=== PATIENT | female | born 1990 | race American Indian/Alaskan Native ===

== ENCOUNTER 2017-05-10 12:14 | Outpatient (CLI) | payer OTHER, MEDICAID ==
[2017-05-10] MEDS ORDERED: LACTATED RINGERS 500 ML IV ONE (12:17)
[2017-05-10 12:29] VITALS: BP 128/73
--- NOTE | 2017-05-10 14:43 | Ultrasound Report ---
ULTRASOUND OB LIMITED History: Rupture of membranes Technique: Transabdominal ultrasound with Doppler interrogation. Gestation: Single Position: Cephalic Amniotic Fluid: Normal NANCY = 7.0 cm Heart Rate: 166 BPM
== END 2017-05-10 15:20 | disposition home or self-care (01) ==
LOC: TRG 12:14
PROVIDERS: ATTEND Obstetrics & Gynecology
DX: O42.92 Full-term premature rupture of membranes, unspecified as to length of time between rupture and onset of labor (principal); O47.03 False labor before 37 completed weeks of gestation, third trimester; Z3A.36 36 weeks gestation of pregnancy
CPT/HCPCS: 59025; 76815

== ENCOUNTER 2017-05-15 16:46 | Outpatient (CLI) | payer OTHER, MEDICAID ==
[2017-05-15 17:06] VITALS: BP 123/75
[2017-05-15] MEDS ORDERED: LACTATED RINGERS 500 ML IV ONE ×2 (17:43→18:24)
[2017-05-15 19:54] LABS: Bacteria,Urine 3+ /HPF (Negative); Bilirubin,Urine NEG (Negative); Blood,Urine NEG (Negative); Ketones,Urine TR mg/dL (Negative); Leukocyte Esterase,Urine LG (Negative); Mucus,Urine 3+ /HPF; Nitrite,Urine NEG (Negative)
[2017-05-15] MEDS ORDERED: XYLOCAINE 1% MPF 5 mL INFILTRATI ONE (20:02)
[2017-05-15] MEDS ORDERED: ROCEPHIN IV ONE (20:02)
[2017-05-15] MEDS ORDERED: ROCEPHIN IM ONE (20:45)
[2017-05-15] MEDS ORDERED: NACL 0.9% 1000 ML 1,000 ML ONE (20:46)
[2017-05-15] MEDS ORDERED: ROCEPHIN/NS 1 GM/50 ML 1 GM/50 ML BAG IV SCH (21:00)
== END 2017-05-15 21:25 | disposition home or self-care (01) ==
LOC: TRG 16:46
PROVIDERS: ATTEND Obstetrics & Gynecology
DX: O47.03 False labor before 37 completed weeks of gestation, third trimester (principal); Z3A.36 36 weeks gestation of pregnancy
CPT/HCPCS: 59025; 81001; 87086; 96360; 96361; 96365; J0696; J7030; J7120

== ENCOUNTER 2017-05-17 00:40 | Inpatient (IN) | payer OTHER, MEDICAID ==
[2017-05-17] MEDS ORDERED: BRETHINE IVP PRN (02:29)
[2017-05-17] MEDS ORDERED: XYLOCAINE 2% INFILTRATI ONE (02:29)
[2017-05-17] MEDS ORDERED: MINERAL OIL PO PRN (02:29)
[2017-05-17] MEDS ORDERED: SUBLIMAZE IV PRN (02:29)
[2017-05-17] MEDS ORDERED: BRETHINE SUB-Q PRN (02:29)
[2017-05-17] MEDS ORDERED: ePHEDrine SULFATE IV PRN ×2 (02:29→08:00)
[2017-05-17] MEDS ORDERED: PITOCin/NS 30 UNIT/500ML 30 UNITS/500 ML BAG IV SCH ×2 (03:00→09:00)
[2017-05-17] MEDS ORDERED: PITOCin/NS 20 UNIT/1000ML DRIP 20 UNITS/1,000 ML BAG IV SCH (03:00)
[2017-05-17] MEDS: LACTATED RINGERS 1,000 ML IV SCH ×3 (03:28→10:32)
[2017-05-17 03:58] LABS: Hematocrit 28.8 % (30.3-42.9); Hemoglobin 9.7 gm/dl (10.1-14.3); Mean Corpuscular HGB Conc 34 % (30-34); Mean Corpuscular Hemoglobin 29 pg (28-32); Mean Corpuscular Volume 87 fl (79-97); Platelet Count 265 K/mm3 (140-440); Red Cell Distribution Width 14.5 % (13.2-15.2); White Blood Count 9.4 K/mm3 (4.5-11.0)
[2017-05-17] MEDS: ZOFRAN IV PRN ×2 (04:45→08:46)
[2017-05-17] MEDS ORDERED: STADOL IV PRN (05:00)
--- NOTE | 2017-05-17 06:49 | History and Physical Report ---
History of Present Illness Date of admission: 05/17/17 02:37 History of present illness: EDC Confirmation: 06/07/2017 Gestational Age: 26 1/7 weeks Past History : 2 Term Births: 0 Premature Births: 0 Living Children: 0 Para: 0 Mult. Births: 0 Prev : 0 Prev. attempt? 0 Aborta: 1 Elect. Ab: 0 Spont. Ab: 1 Ectopics: 0 # 1 Delivery date: 12/10 Weeks Gestation: 9 Delivery type: SAB Comments: D&C done Past Medical History: Rheumatoid Arthritis (11/09) Migraines Hiatal hernia Past Surgical History: Cholecystectomy with Neal plication (09/2014) D&C: (2015) Family History Summary: Other family member - Has No Family History of Ovarvian Cancer - Entered On: 03/02 Other family member - Has No Family History of Colon Cancer - Entered On: 2016 Other family member - Has No Family History of Breast Cancer - Entered On: 2016 Other family member - Has Family History of Hypertension - Entered On: 03/02/2017 Other family member - Has Family History of Diabetes - Entered On: 03/02/2017 Other family member - Has Family History of CVA or Stroke - Entered On: 03/02/2017 Other family member - Has Family History of Coronary Heart Disease - Entered On : 03/02/2017 Social History: Patient is Risk Factors: Smoked Tobacco Use: Never smoker Drug use: no Alcohol use: yes Drinks per day: social Past Medical History 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 of genital herpes: no Genetic History Congenital Heart Defect: Mom: no Dad: no Caleb Disease: Mom: no Dad: no Thalassemia Mom: no Dad: no Neural Tube Defect Mom: no Dad: no Down's Syndrome Mom: no Dad: no Saeed-Sachs Mom: no Dad: no Sickle Cell Disease/Trait Mom: no Dad: no Hemophilia Mom: no Dad: no Muscular Dystrophy Mom: no Dad: no Cystic Fibrosis Mom: no Dad: no [place] Chorea Mom: no Dad: no Mental Retardation Mom: no Dad: no Fragile X Mom: no Dad: no Other Genetic/Chromosomal Disorder Mom: no Dad: no Child w/other defect Mom: no Dad: no Active Medications (reviewed today): PREDNISONE 10 MG ORAL TABS (PREDNISONE) [id number] [id number] MG ORAL CAPS ([id number]-COD) Current Allergies (reviewed today): No known allergies Laboratory Results Date/Time Collected: 03/02/2017 Urine HCG: positive Review of Systems General Complains of fatigue. Denies fever, chills, sweats, anorexia, weakness, malaise, weight loss and sleep disorder. Complains of pelvic pain. Denies vaginal discharge, incontinence, dysuria, hematuria, urinary frequency, amenorrhea, menorrhagia, abnormal vaginal bleeding, genital sores, decreased libido, painful periods, painful sex, urinary urgency, hot flashes, vaginal dryness, vaginal itching and vaginal odor. CV Denies chest pains, palpitations, syncope, dyspnea on exertion, orthopnea, PND and peripheral edema. Resp Denies cough, dyspnea at rest, excessive sputum, hemoptysis, wheezing and pleurisy. GI Denies nausea, vomiting, diarrhea, constipation, change in bowel habits, abdominal pain, melena, hematochezia, jaundice, gas/bloating, indigestion/ heartburn, dysphagia and odynophagia. Breast Complains of breast pain. Denies left breast lump, right breast lump, nipple discharge, bloody discharge from nipple, abnormal mammogram and breast enlargement. MS Complains of back pain. Psych Complains of anxiety. Denies depression, irritability and mood swings. PHYSICAL EXAM HEENT: normocephalic, no lesions or deformities Neck/Thyroid: supple, thyroid normal Skin no significant abnormal lesions or rashes .Tatoo(s) are present Chest: respiratory effort normal, clear to auscultation .Tatoo(s) are present Breasts: skin/areolae normal, no masses, no nipple discharge, no erythema/warmth /tenderness, and axillae normal. CV: regular, normal S1-S2, no murmur, no rub, no gallop Abdomen: normal bowel sounds, soft, nontender, no HSM Healed laparoscopy scars Musculoskeletal: grossly normal ROM in joints, no joint tenderness or muscle weakness Neuro: no gross anomalities Extremities: no clubbing, cyanosis, or edema .Tatoo(s) are present VP GLOBAL Exams Vulva/Vagina: No lesions, normal BUS, normal rugae Cervix: No lesions; no cervical motion tenderness Uterus: enlarged uterus 24-26 weeks in size Adnexae: Unable to palpate due to uterine size Rectovaginal: exam defered Flowsheet View for Follow-up Visit Estimated weeks of gestation: 26 1/7 Weight: 133 Blood pressure: 100 / 60 Current OB Labs Blood Type: A (10/20/2016) Rh Type: positive (10/20/2016) Rh Antibody Screen: negative (10/20/2016) Hgb: 12.7 (10/20/2016) Hct: 38.1 (10/20/2016) Platelets: 315 (10/20/2016) Rubella: immune (10/20/2016) RPR: nonreactive (10/20/2016) Infant's Physician: undecided Past History - Obstetrical History Expected Date of Delivery: 06/07/17 Actual Gestation: 37 Week(s) 0 Day(s) : 2 Para: 0 Spontaneous Abortions: 1 Number of Living Children: 0 Medications and Allergies Allergies Allergy/AdvReac Type Severity Reaction Status Date / Time latex AdvReac Itching Verified 05/17/17 03:54 Home Medications Medication Instructions Recorded Confirmed Last Taken Type predniSONE [Deltasone] 10 mg PO QDAY 05/17/17 05/17/17 05/16/17 History Active Meds: Active Medications Butorphanol Tartrate (Stadol) 2 mg IV Q2H PRN PRN Reason: Labor Pain Last Admin: 05/17/17 05:30 Dose: 2 mg Fentanyl (Sublimaze) 100 mcg IV Q2H PRN PRN Reason: Labor Pain Last Admin: 05/17/17 03:28 Dose: 100 mcg Lactated Ringer's (Lactated Ringers) 1,000 mls @ 125 mls/hr IV DIRECT GINA Last Admin: 05/17/17 03:28 Dose: 125 mls/hr Oxytocin/Sodium Chloride (Pitocin/Ns 20 Unit/1000ml Drip) 20 units in 1,000 mls @ 125 mls/hr IV DIRECT GINA Oxytocin/Sodium Chloride (Pitocin/Ns 30 Unit/500ml) 30 units in 500 mls @ 2 mls /hr IV TITR GINA PRN Reason: Protocol Last Titration: 05/17/17 06:29 Dose: 2 mls/hr, 2 mls/hr Mineral Oil (Mineral Oil) 30 ml PO QHS PRN PRN Reason: Constipation Ondansetron HCl (Zofran) 4 mg IV Q8H PRN PRN Reason: Nausea And Vomiting Last Admin: 05/17/17 04:45 Dose: 4 mg - Vital Signs Vital signs: Vital Signs Pulse Pulse Ox 250 H 82 L 05/17/17 00:56 05/17/17 00:56 Temp Pulse Resp BP Pulse Ox 97.5 F L 73 22 137/85 100 05/17/17 05:33 05/17/17 06:14 05/17/17 05:33 05/17/17 05:30 05/17/17 06:14 - Physical Exam Breasts: Positive: deferred Cardiovascular: Regular rate, Normal S1, Normal S2 Lungs: Positive: Normal air movement Abdomen: Positive: normal appearance, soft, normal bowel sounds. Negative: distention, tenderness Genitourinary (Female): Positive: normal external genitalia Vulva: both: normal Vagina: Positive: normal moisture. Negative: discharge Cervix: Negative: lesion, discharge Uterus: Positive: normal size, normal contour Adnexa: both: normal Anus/Rectum: Positive: normal perianal skin, heme negative. Negative: rectal mass, hemorrhoids Extremities: Positive: normal Deep Tendon Reflex Grade: Normal +2 - Obstetrical FHR: category 1 Uterine Contraction Monitor Mode: External Cervical Dilatation: 3 Cervical Effacement Percentage: 70 station: -1 Uterine Contraction Pattern: Irregular Uterine Tone Measurement Phase: Resting Uterine Contraction Intensity: Moderate Results Result Diagrams: 05/17/17 03:20 Abnormal lab results 05/17/17 Range/Units 03:20 RBC 3.30 L (3.65-5.03) M/mm3 Hgb 9.7 L (10.1-14.3) gm/dl Hct 28.8 L (30.3-42.9) % All other labs normal. Laboratory Data-Patient Name: LOUIE GARCIA Test Date Result Blood Type 10/20/2016 A Rh 10/20/2016 positive Antibody Screen 10/20/2016 Negative Rubella 10/20/2016 Immune Serology (RPR) 05/06/2017 Nonreactive HBsAg 03/08/2017 negative Hemoglobin 10/20/2016 12.7 Hematocrit 10/20/2016 38.1 Platelets 10/20/2016 315 Chlamydia DNA 03/02/2017 Negative GC DNA/Culture 03/02/2017 Urine Culture 05/06/2017 Final report Group B Strep cult 05/03/2017 Negative PAP HIV 05/06/2017 Negative AFP/Quad Screen Glucola Test 3hr GTT (Fasting) 05/06/2017 76 1 hr 05/06/2017 77 2 hr 05/06/2017 81 3 hr 05/06/2017 65 Assessment and Plan 26yo @ 37 weeks with ROM NANCY 5 GBS negative Orders in EMR. - Patient Problems (1) Spontaneous rupture of membranes Onset Date: ~05/17/17 Current Visit: Yes Status: Acute Plan to address problem: EFM continuous Pitocin per protocol (2) 37 or more weeks gestation of Onset Date: ~05/17/17 Current Visit: Yes Status: Acute Plan to address problem: SROM Augmentation of labor with pitocin per protcol (3) Arthritis, rheumatoid Current Visit: Yes Status: Acute Qualifiers: Rheumatoid arthritis location: unspecified site Rheumatoid factor presence : unspecified presence Laterality: L Qualified Code(s): M06.9 - Rheumatoid arthritis, unspecified Plan to address problem: Pt states she has RA and has been on Prednisone 100mg po QD. Pt states she is to be on stress dose steroids. Will consult with for mgt.
[2017-05-17] MEDS ORDERED: ePHEDrine SULFATE ONE (07:09)
--- NOTE | 2017-05-17 07:44 | Anesthesia Consultation ---
Anesthesia Consult and Med Hx Date of service: 05/17/17 - Airway Anesthetic Teeth Evaluation: Good ROM Head & Neck: Adequate Mental/Hyoid Distance: Adequate Mallampati Class: Class II Intubation Access Assessment: Probably Good - Pulmonary Exam CTA: Yes - Cardiac Exam Cardiac Exam: RRR - Pre-Operative Health Status ASA Pre-Surgery Classification: ASA2 Proposed Anesthetic Plan: General - Pulmonary Hx Asthma: No COPD: No Hx Pneumonia: No - Cardiovascular System Hx Hypertension: No - Central Nervous System Hx Seizures: No Hx Psychiatric Problems: No - Endocrine Hx Renal Disease: No Hx End Stage Renal Disease: No Hx Hypothyroidism: No Hx Hyperthyroidism: No - Hematic Hx Anemia: No Hx Sickle Cell Disease: No - Other Systems Hx Alcohol Use: No
[2017-05-17] MEDS: fentaNYL-BUPIV 2 MCG/ML-0.125% 200 MCG/100 ML BAG EPIDURAL SCH ×2 (07:50→11:30)
--- NOTE | 2017-05-17 07:56 | Progress Note ---
Assessment and Plan Epidural complete Landa placed SVE 3-4,80,0 Pit remains @ 2mu Re-eval as needed. Spoke with will start Hydrocortisone 100mg po q8hr as the stress dose steroids. Will resume pitocin per order increase 4mu Q30min Re-eval as needed - Patient Problems (1) Spontaneous rupture of membranes Onset Date: ~05/17/17 Current Visit: Yes Status: Acute (2) 37 or more weeks gestation of Onset Date: ~05/17/17 Current Visit: Yes Status: Acute (3) Arthritis, rheumatoid Current Visit: Yes Status: Acute Qualifiers: Rheumatoid arthritis location: unspecified site Rheumatoid factor presence : unspecified presence Laterality: L Qualified Code(s): M06.9 - Rheumatoid arthritis, unspecified Subjective - Subjective Date of service: 05/17/17 (comfortable with epidural) Interval history: EDC Confirmation: 06/07/2017 Gestational Age: 26 1/7 weeks Past History : 2 Term Births: 0 Premature Births: 0 Living Children: 0 Para: 0 Mult. Births: 0 Prev : 0 Prev. attempt? 0 Aborta: 1 Elect. Ab: 0 Spont. Ab: 1 Ectopics: 0 # 1 Delivery date: 12/10 Weeks Gestation: 9 Delivery type: SAB Comments: D&C done Past Medical History: Rheumatoid Arthritis (11/09) Migraines Hiatal hernia Past Surgical History: Cholecystectomy with Neal plication (09/2014) D&C: (2015) Family History Summary: Other family member - Has No Family History of Ovarvian Cancer - Entered On: 03/02 Other family member - Has No Family History of Colon Cancer - Entered On: 2016 Other family member - Has No Family History of Breast Cancer - Entered On: 2016 Other family member - Has Family History of Hypertension - Entered On: 03/02/2017 Other family member - Has Family History of Diabetes - Entered On: 03/02/2017 Other family member - Has Family History of CVA or Stroke - Entered On: 03/02/2017 Other family member - Has Family History of Coronary Heart Disease - Entered On : 03/02/2017 Social History: Patient is Risk Factors: Smoked Tobacco Use: Never smoker Drug use: no Alcohol use: yes Drinks per day: social Past Medical History 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 of genital herpes: no Genetic History Congenital Heart Defect: Mom: no Dad: no Caleb Disease: Mom: no Dad: no Thalassemia Mom: no Dad: no Neural Tube Defect Mom: no Dad: no Down's Syndrome Mom: no Dad: no Saeed-Sachs Mom: no Dad: no Sickle Cell Disease/Trait Mom: no Dad: no Hemophilia Mom: no Dad: no Muscular Dystrophy Mom: no Dad: no Cystic Fibrosis Mom: no Dad: no [place] Chorea Mom: no Dad: no Mental Retardation Mom: no Dad: no Fragile X Mom: no Dad: no Other Genetic/Chromosomal Disorder Mom: no Dad: no Child w/other defect Mom: no Dad: no Active Medications (reviewed today): PREDNISONE 10 MG ORAL TABS (PREDNISONE) [id number] [id number] MG ORAL CAPS ([id number]-COD) Current Allergies (reviewed today): No known allergies Laboratory Results Date/Time Collected: 03/02/2017 Urine HCG: positive Review of Systems General Complains of fatigue. Denies fever, chills, sweats, anorexia, weakness, malaise, weight loss and sleep disorder. Complains of pelvic pain. Denies vaginal discharge, incontinence, dysuria, hematuria, urinary frequency, amenorrhea, menorrhagia, abnormal vaginal bleeding, genital sores, decreased libido, painful periods, painful sex, urinary urgency, hot flashes, vaginal dryness, vaginal itching and vaginal odor. CV Denies chest pains, palpitations, syncope, dyspnea on exertion, orthopnea, PND and peripheral edema. Resp Denies cough, dyspnea at rest, excessive sputum, hemoptysis, wheezing and pleurisy. GI Denies nausea, vomiting, diarrhea, constipation, change in bowel habits, abdominal pain, melena, hematochezia, jaundice, gas/bloating, indigestion/ heartburn, dysphagia and odynophagia. Breast Complains of breast pain. Denies left breast lump, right breast lump, nipple discharge, bloody discharge from nipple, abnormal mammogram and breast enlargement. MS Complains of back pain. Psych Complains of anxiety. Denies depression, irritability and mood swings. PHYSICAL EXAM HEENT: normocephalic, no lesions or deformities Neck/Thyroid: supple, thyroid normal Skin no significant abnormal lesions or rashes .Tatoo(s) are present Chest: respiratory effort normal, clear to auscultation .Tatoo(s) are present Breasts: skin/areolae normal, no masses, no nipple discharge, no erythema/warmth /tenderness, and axillae normal. 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 Vulva/Vagina: No lesions, normal BUS, normal rugae Cervix: No lesions; no cervical motion tenderness Uterus: enlarged uterus 24-26 weeks in size Adnexae: Unable to palpate due to uterine size Rectovaginal: exam defered Flowsheet View for Follow-up Visit Estimated weeks of gestation: 26 10/31 Weight: 133 Blood pressure: 100 / 60 Current OB Labs Blood Type: A (10/20/2016) Rh Type: positive (10/20/2016) Rh Antibody Screen: negative (10/20/2016) Hgb: 12.7 (10/20/2016) Hct: 38.1 (10/20/2016) Platelets: 315 (10/20/2016) Rubella: immune (10/20/2016) RPR: nonreactive (10/20/2016) 's Physician: undecided Patient reports: movement normal Objective - Vital Signs Vital Signs: Vital Signs - 12hr 05/17/17 05/17/17 05/17/17 00:56 01:03 02:49 Temperature 98.4 F Pulse Rate 250 H 94 H 81 Respiratory 18 Rate Blood Pressure 135/72 120/71 O2 Sat by Pulse 82 L 98 Oximetry 05/17/17 05/17/17 05/17/17 02:51 02:54 02:59 Temperature 98.3 F Pulse Rate 81 89 Respiratory 20 Rate Blood Pressure O2 Sat by Pulse 98 98 Oximetry 05/17/17 05/17/1717 03:28 05:30 05:31 Temperature Pulse Rate 86 96 H Respiratory 20 22 Rate Blood Pressure 137/85 O2 Sat by Pulse 91 Oximetry 05/17/17 05/17/17 05/17/17 05:33 06:14 07:14 Temperature 97.5 F L Pulse Rate 73 74 Respiratory 22 Rate Blood Pressure 138/78 O2 Sat by Pulse 100 Oximetry 05/17/17 05/17/17 05/17/17 07:15 07:18 07:20 Temperature Pulse Rate 85 82 88 Respiratory Rate Blood Pressure O2 Sat by Pulse 96 94 98 Oximetry 05/17/17 05/17/17 05/17/17 07:26 07:28 07:29 Temperature Pulse Rate 92 H 88 110 H Respiratory Rate Blood Pressure 141/62 137/72 138/87 O2 Sat by Pulse 98 Oximetry 05/17/17 05/17/17 05/17/17 07:31 07:32 07:34 Temperature Pulse Rate 89 79 85 Respiratory Rate Blood Pressure 137/81 138/77 O2 Sat by Pulse 99 Oximetry 05/17/17 05/17/17 05/17/17 07:35 07:36 07:37 Temperature Pulse Rate 72 76 85 Respiratory Rate Blood Pressure 142/80 140/69 O2 Sat by Pulse 99 Oximetry 05/17/17 05/17/17 05/17/17 07:39 07:41 07:42 Temperature Pulse Rate 81 84 97 H Respiratory Rate Blood Pressure 130/73 141/80 O2 Sat by Pulse 98 Oximetry 05/17/17 07:44 Temperature Pulse Rate 94 H Respiratory Rate Blood Pressure 126/69 O2 Sat by Pulse Oximetry - Exam Breasts: deferred Cardiovascular: Regular rate Lungs: Normal air movement Abdomen: Present: normal appearance, soft. Absent: distention, tenderness Uterus: Present: normal FHR: auscultation normal, category 1 Uterine Contraction Monitor Mode: External Cervical Dilatation: 3 Cervical Effacement Percentage: 80 station: 0 Uterine Contraction Pattern: Regular Uterine Tone Measurement Phase: Resting Uterine Contraction Intensity: Moderate Extremities: normal Deep Tendon Reflex Grade: Normal +2 - Labs Labs: Abnormal Labs 05/17/17 03:20 RBC 3.30 L Hgb 9.7 L Hct 28.8 L Laboratory Results - last 24 hr 05/17/17 05/17/17 03:20 03:20 WBC 9.4 RBC 3.30 L Hgb 9.7 L Hct 28.8 L MCV 87 MCH 29 MCHC 34 RDW 14.5 Plt Count 265 Blood Type A POSITIVE Antibody Screen TNR JENNY Antibody Screen Negative
[2017-05-17] MEDS ORDERED: NARCAN 2 MG/2 ML IV PRN (08:00)
[2017-05-17] MEDS ORDERED: CORTEF PO SCH (09:00)
--- NOTE | 2017-05-17 09:01 | Ultrasound Report ---
OB LIMITED INDICATION: Questionable spontaneous rupture of membranes. COMPARISON: 05/10/2017 TECHNIQUE: Transabdominal grayscale ultrasound with Doppler interrogation. Gestation: [place] Position: Cephalic Amniotic Fluid: Decreased (< 7 cm) NANCY = 5.5 cm Placenta: Fundal Placental Grade: II Heart Rate: 146 BPM
--- NOTE | 2017-05-17 10:58 | Progress Note ---
Assessment and Plan Anticipate vaginal delivery - Patient Problems (1) Spontaneous rupture of membranes Onset Date: ~05/17/17 Current Visit: Yes Status: Acute (2) 37 or more weeks gestation of Onset Date: ~05/17/17 Current Visit: Yes Status: Acute (3) Arthritis, rheumatoid Current Visit: Yes Status: Acute Qualifiers: Rheumatoid arthritis location: unspecified site Rheumatoid factor presence : unspecified presence Laterality: L Qualified Code(s): M06.9 - Rheumatoid arthritis, unspecified Subjective - Subjective Date of service: 05/17/17 (comfortable with epidural) Interval history: EDC Confirmation: 06/07/2017 Gestational Age: 26 1/7 weeks Past History : 2 Term Births: 0 Premature Births: 0 Living Children: 0 Para: 0 Mult. Births: 0 Prev : 0 Prev. attempt? 0 Aborta: 1 Elect. Ab: 0 Spont. Ab: 1 Ectopics: 0 # 1 Delivery date: 12/10 Weeks Gestation: 9 Delivery type: SAB Comments: D&C done Past Medical History: Rheumatoid Arthritis (11/09) Migraines Hiatal hernia Past Surgical History: Cholecystectomy with Neal plication (09/2014) D&C: (2015) Family History Summary: Other family member - Has No Family History of Ovarvian Cancer - Entered On: 03/02 Other family member - Has No Family History of Colon Cancer - Entered On: 2016 Other family member - Has No Family History of Breast Cancer - Entered On: 2016 Other family member - Has Family History of Hypertension - Entered On: 03/02/2017 Other family member - Has Family History of Diabetes - Entered On: 03/02/2017 Other family member - Has Family History of CVA or Stroke - Entered On: 03/02/2017 Other family member - Has Family History of Coronary Heart Disease - Entered On : 03/02/2017 Social History: Patient is Risk Factors: Smoked Tobacco Use: Never smoker Drug use: no Alcohol use: yes Drinks per day: social Past Medical History 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 of genital herpes: no Genetic History Congenital Heart Defect: Mom: no Dad: no Caleb Disease: Mom: no Dad: no Thalassemia Mom: no Dad: no Neural Tube Defect Mom: no Dad: no Down's Syndrome Mom: no Dad: no Saeed-Sachs Mom: no Dad: no Sickle Cell Disease/Trait Mom: no Dad: no Hemophilia Mom: no Dad: no Muscular Dystrophy Mom: no Dad: no Cystic Fibrosis Mom: no Dad: no [place] Chorea Mom: no Dad: no Mental Retardation Mom: no Dad: no Fragile X Mom: no Dad: no Other Genetic/Chromosomal Disorder Mom: no Dad: no Child w/other defect Mom: no Dad: no Active Medications (reviewed today): PREDNISONE 10 MG ORAL TABS (PREDNISONE) [id number] [id number] MG ORAL CAPS ([id number]-COD) Current Allergies (reviewed today): No known allergies Laboratory Results Date/Time Collected: 03/02/2017 Urine HCG: positive Review of Systems General Complains of fatigue. Denies fever, chills, sweats, anorexia, weakness, malaise, weight loss and sleep disorder. Complains of pelvic pain. Denies vaginal discharge, incontinence, dysuria, hematuria, urinary frequency, amenorrhea, menorrhagia, abnormal vaginal bleeding, genital sores, decreased libido, painful periods, painful sex, urinary urgency, hot flashes, vaginal dryness, vaginal itching and vaginal odor. CV Denies chest pains, palpitations, syncope, dyspnea on exertion, orthopnea, PND and peripheral edema. Resp Denies cough, dyspnea at rest, excessive sputum, hemoptysis, wheezing and pleurisy. GI Denies nausea, vomiting, diarrhea, constipation, change in bowel habits, abdominal pain, melena, hematochezia, jaundice, gas/bloating, indigestion/ heartburn, dysphagia and odynophagia. Breast Complains of breast pain. Denies left breast lump, right breast lump, nipple discharge, bloody discharge from nipple, abnormal mammogram and breast enlargement. MS Complains of back pain. Psych Complains of anxiety. Denies depression, irritability and mood swings. PHYSICAL EXAM HEENT: normocephalic, no lesions or deformities Neck/Thyroid: supple, thyroid normal Skin no significant abnormal lesions or rashes .Tatoo(s) are present Chest: respiratory effort normal, clear to auscultation .Tatoo(s) are present Breasts: skin/areolae normal, no masses, no nipple discharge, no erythema/warmth /tenderness, and axillae normal. CV: regular, normal S1-S2, no murmur, no rub, no gallop Abdomen: normal bowel sounds, soft, nontender, no HSM Healed laparoscopy scars Musculoskeletal: grossly normal ROM in joints, no joint tenderness or muscle weakness Neuro: no gross anomalities Extremities: no clubbing, cyanosis, or edema .Tatoo(s) are present [facility] Vulva/Vagina: No lesions, normal BUS, normal rugae Cervix: No lesions; no cervical motion tenderness Uterus: enlarged uterus 24-26 weeks in size Adnexae: Unable to palpate due to uterine size Rectovaginal: exam defered Flowsheet View for Follow-up Visit Estimated weeks of gestation: 26 10/31 Weight: 133 Blood pressure: 100 / 60 Current OB Labs Blood Type: A (10/20/2016) Rh Type: positive (10/20/2016) Rh Antibody Screen: negative (10/20/2016) Hgb: 12.7 (10/20/2016) Hct: 38.1 (10/20/2016) Platelets: 315 (10/20/2016) Rubella: immune (10/20/2016) RPR: nonreactive (10/20/2016) Infant's Physician: undecided Patient reports: movement normal Objective - Vital Signs Vital Signs: Vital Signs - 12hr 05/17/17 05/17/17 05/17/17 00:56 01:03 02:49 Temperature 98.4 F Pulse Rate 250 H 94 H 81 Respiratory 18 Rate Blood Pressure 135/72 120/71 O2 Sat by Pulse 82 L 98 Oximetry 05/17/17 05/17/17 05/17/17 02:51 02:54 02:59 Temperature 98.3 F Pulse Rate 81 89 Respiratory 20 Rate Blood Pressure O2 Sat by Pulse 98 98 Oximetry 05/17/17 05/17/17 05/17/17 03:28 05:30 05:31 Temperature Pulse Rate 86 96 H Respiratory 20 22 Rate Blood Pressure 137/85 O2 Sat by Pulse 91 Oximetry 05/17/17 05/17/17 05/17/17 05:33 06:14 07:14 Temperature 97.5 F L Pulse Rate 73 74 Respiratory 22 Rate Blood Pressure 138/78 O2 Sat by Pulse 100 Oximetry 05/17/17 05/17/17 05/17/17 07:15 07:18 07:20 Temperature Pulse Rate 85 82 88 Respiratory Rate Blood Pressure O2 Sat by Pulse 96 94 98 Oximetry 05/17/17 05/17/17 05/17/17 07:26 07:28 07:29 Temperature Pulse Rate 92 H 88 110 H Respiratory Rate Blood Pressure 141/62 137/72 138/87 O2 Sat by Pulse 98 Oximetry 05/17/17 05/17/17 05/17/17 07:31 07:32 07:34 Temperature Pulse Rate 89 79 85 Respiratory Rate Blood Pressure 137/81 138/77 O2 Sat by Pulse 99 Oximetry 05/17/17 05/17/17 05/17/17 07:35 07:36 07:37 Temperature Pulse Rate 72 76 85 Respiratory Rate Blood Pressure 142/80 140/69 O2 Sat by Pulse 99 Oximetry 05/17/17 05/17/17 05/17/17 07:39 07:41 07:42 Temperature Pulse Rate 81 84 97 H Respiratory Rate Blood Pressure 130/73 141/80 O2 Sat by Pulse 98 Oximetry 05/17/17 05/17/17 05/17/17 07:44 07:46 07:51 Temperature Pulse Rate 94 H 78 95 H Respiratory Rate Blood Pressure 126/69 128/72 O2 Sat by Pulse 98 99 Oximetry 05/17/17 05/17/17 05/17/17 07:54 07:56 08:01 Temperature 97.8 F Pulse Rate 100 H 118 H Respiratory 20 Rate Blood Pressure 129/78 O2 Sat by Pulse 98 98 Oximetry 05/17/17 05/17/17 05/17/17 08:06 08:11 08:16 Temperature Pulse Rate 111 H 118 H 104 H Respiratory Rate Blood Pressure 131/78 119/62 O2 Sat by Pulse 98 98 98 Oximetry 05/17/17 05/17/17 05/17/17 08:21 08:26 08:31 Temperature Pulse Rate 86 101 H 105 H Respiratory Rate Blood Pressure 113/64 O2 Sat by Pulse 96 97 98 Oximetry 05/17/17 05/17/17 05/17/17 08:36 08:41 08:45 Temperature Pulse Rate 102 H 82 114 H Respiratory Rate Blood Pressure 124/84 O2 Sat by Pulse 98 97 Oximetry 05/17/17 05/17/17 05/17/17 08:46 08:51 08:56 Temperature Pulse Rate 139 H 94 H 81 Respiratory Rate Blood Pressure O2 Sat by Pulse 99 99 97 Oximetry 05/17/17 05/17/17 05/17/17 09:00 09:01 09:06 Temperature Pulse Rate 98 H 107 H 73 Respiratory Rate Blood Pressure 118/70 O2 Sat by Pulse 99 96 Oximetry 05/17/17 05/17/17 05/17/17 09:11 09:15 09:16 Temperature Pulse Rate 80 81 81 Respiratory Rate Blood Pressure 125/70 O2 Sat by Pulse 97 98 Oximetry 05/17/17 05/17/17 05/17/17 09:21 09:26 09:30 Temperature Pulse Rate 91 H 75 88 Respiratory Rate Blood Pressure 123/69 O2 Sat by Pulse 97 96 Oximetry 05/17/17 05/17/17 05/17/17 09:31 09:36 09:41 Temperature Pulse Rate 103 H 88 105 H Respiratory Rate Blood Pressure O2 Sat by Pulse 97 98 97 Oximetry 05/17/17 05/17/17 05/17/17 09:45 09:46 09:51 Temperature Pulse Rate 88 88 86 Respiratory Rate Blood Pressure 129/77 O2 Sat by Pulse 98 97 Oximetry 05/17/17 05/17/17 05/17/17 09:56 10:00 10:01 Temperature Pulse Rate 98 H 104 H 79 Respiratory Rate Blood Pressure 119/65 O2 Sat by Pulse 98 97 Oximetry 05/17/17 05/17/17 05/17/17 10:06 10:11 10:16 Temperature Pulse Rate 115 H 86 98 H Respiratory Rate Blood Pressure 131/79 O2 Sat by Pulse 98 98 98 Oximetry 05/17/17 05/17/17 05/17/17 10:21 10:26 10:31 Temperature Pulse Rate 100 H 89 92 H Respiratory Rate Blood Pressure 134/79 O2 Sat by Pulse 98 98 97 Oximetry 05/17/17 05/17/17 05/17/17 10:36 10:41 10:45 Temperature Pulse Rate 94 H 98 H 92 H Respiratory Rate Blood Pressure 132/81 O2 Sat by Pulse 99 96 Oximetry 05/17/17 05/17/17 10:46 10:51 Temperature Pulse Rate 85 90 Respiratory Rate Blood Pressure O2 Sat by Pulse 97 98 Oximetry - Exam Breasts: deferred Cardiovascular: Regular rate Lungs: Normal air movement Abdomen: Present: normal appearance, soft. Absent: distention, tenderness Uterus: Present: normal FHR: auscultation normal, category 1 Uterine Contraction Monitor Mode: External Cervical Dilatation: 9 Cervical Effacement Percentage: 100 station: 0 Uterine Contraction Pattern: Regular Uterine Contraction Intensity: Moderate Extremities: normal Deep Tendon Reflex Grade: Normal +2 - Labs Labs: Abnormal Labs 05/17/17 03:20 RBC 3.30 L Hgb 9.7 L Hct 28.8 L Laboratory Results - last 24 hr 05/17/17 05/17/17 03:20 03:20 WBC 9.4 RBC 3.30 L Hgb 9.7 L Hct 28.8 L MCV 87 MCH 29 MCHC 34 RDW 14.5 Plt Count 265 Blood Type A POSITIVE Antibody Screen TNR JENNY Antibody Screen Negative
[2017-05-17] MEDS ORDERED: TYLENOL PO ONE (11:00)
[2017-05-17] MEDS ORDERED: DULCOLAX PR PRN (11:56)
[2017-05-17] MEDS ORDERED: TYLENOL PO PRN (11:56)
[2017-05-17] MEDS ORDERED: PHENERGAN PO PRN (11:56)
[2017-05-17] MEDS ORDERED: MILK OF MAGNESIA PO PRN (11:56)
[2017-05-17] MEDS ORDERED: LANSINOH TP PRN (11:56)
[2017-05-17] MEDS ORDERED: TUCKS PAD TP PRN (11:56)
[2017-05-17] MEDS ORDERED: BENADRYL PO PRN (11:56)
[2017-05-17] MEDS ORDERED: SODIUM CHLORIDE FLUSH SYRINGE 10 ML IV SCH (12:00)
--- NOTE | 2017-05-17 12:05 | Procedure Note ---
OB Delivery Note - Delivery Date of Delivery: 05/17/17 Watch Engineer: SHAW PICHARDO Estimated blood loss: 300cc - Vaginal Delivery presentation: vertex Delivery position: OA Intrapartum events: other(please specify) (QD Prednisone for RA) Delivery induction: none Delivery augmentation: pitocin Delivery monitor: external FHT, external uterine Route of delivery: Delivery placenta: spontaneous Delivery cord: 3 umbilical vessels Episiotomy: none Delivery laceration: none Anesthesia: epidural Delivery comments: live born male over intact perineum Baby placed on mom's abdomen skin to skin Placenta del complete and intact, 3 vessel cord. Pit IVFs 9/9, EBL 300, Wgt 5-7 Mom and baby remain LDR. Placenta to pathology. - Infant A at 1 minute: 9 at 5 minutes: 9 Infant Gender: Male (wgt 9/9)
[2017-05-17] MEDS: MOTRIN PO SCH ×2 (14:36→20:24)
[2017-05-17] MEDS: NORCO 5/325 PO PRN (15:41)
[2017-05-17] MEDS: COLACE PO SCH (23:02)
[2017-05-18 01:08] LABS: Hematocrit 25.7 % (30.3-42.9); Hemoglobin 8.7 gm/dl (10.1-14.3)
[2017-05-18] MEDS: MOTRIN PO SCH (05:59)
[2017-05-18] MEDS ORDERED: BOOSTRIX IM ONE (06:00)
--- NOTE | 2017-05-18 07:57 | Progress Note ---
Assessment and Plan patient doing well, no complaints. desires d/c home today if infant is cleared for discharge. VSSAF, H&H 8.7/25.7 (preexisting anemia, asymptomatic), with good latch, lochia scant. plan for d/c home with routine f/u in office. - Patient Problems (1) Arthritis, rheumatoid Current Visit: Yes Status: Acute Qualifiers: Rheumatoid arthritis location: unspecified site Rheumatoid factor presence : unspecified presence Laterality: L Qualified Code(s): M06.9 - Rheumatoid arthritis, unspecified (2) Single live Current Visit: Yes Status: Acute (3) Anemia Current Visit: Yes Status: Acute Qualifiers: Anemia type: iron deficiency Iron deficiency anemia type: inadequate dietary iron intake Vitamin B12 deficiency anemia type: V Folate deficiency anemia type: F Bone marrow failure anemia type: B Hemolytic anemia type: H Other causes of anemia: O Chronic kidney disease stage: C Qualified Code(s ): D50.8 - Other iron deficiency anemias Plan to address problem: fe supplements increase iron rich foods Subjective - Subjective Date of service: 05/18/17 Principal diagnosis: day #1 s/p ; RA Patient reports: appetite normal, voiding normally, pain well controlled, ambulating normally, no dizzy ambulation, no nauseated [place]: doing well, nursing well Objective - Vital Signs Latest vital signs: Vital Signs Temp Pulse Pulse Pulse Resp BP BP 05/18/17 02:10 99 F 71 18 114/57 05/17/17 20:55 98.8 F 73 18 119/73 05/17/17 17:00 98.4 F 78 18 120/60 05/17/17 13:10 98.8 F 74 16 124/65 05/17/17 12:30 88 135/83 05/17/17 12:15 81 136/80 05/17/17 12:00 86 146/86 05/17/17 11:45 97.6 F 98 H 18 136/86 05/17/17 11:30 100 H 144/89 05/17/17 11:21 100 H 05/17/17 11:16 81 131/79 05/17/17 11:11 95 H 05/17/17 11:06 101 H 05/17/17 11:01 105 H 05/17/17 11:00 95 H 135/82 05/17/17 10:56 98 H 05/17/17 10:51 90 05/17/17 10:46 85 05/17/17 10:45 92 H 132/81 05/17/17 10:41 98 H 05/17/17 10:36 94 H 05/17/17 10:31 92 H 134/79 05/17/17 10:26 89 05/17/17 10:21 100 H 05/17/17 10:16 98 H 131/79 05/17/17 10:11 86 05/17/17 10:06 115 H 05/17/17 10:01 79 05/17/17 10:00 104 H 119/65 05/17/17 09:56 98 H 05/17/17 09:51 86 05/17/17 09:46 88 05/17/17 09:45 88 129/77 05/17/17 09:41 105 H 05/17/17 09:36 88 05/17/17 09:31 103 H 05/17/17 09:30 88 123/69 05/17/17 09:26 75 05/17/17 09:21 91 H 05/17/17 09:16 81 05/17/17 09:15 81 125/70 05/17/17 09:11 80 05/17/17 09:06 73 05/17/17 09:01 107 H 05/17/17 09:00 98 H 118/70 05/17/17 08:56 81 05/17/17 08:51 94 H 05/17/17 08:46 139 H 05/17/17 08:45 114 H 124/84 05/17/17 08:41 82 05/17/17 08:36 102 H 05/17/17 08:31 105 H 05/17/17 08:26 101 H 113/64 05/17/17 08:21 86 05/17/17 08:16 104 H 119/62 05/17/17 08:11 118 H 05/17/17 08:06 111 H 131/78 05/17/17 08:01 118 H 05/17/17 07:56 100 H 129/78 Pulse Ox 05/18/17 02:10 05/17/17 20:55 05/17/17 17:00 05/17/17 13:10 05/17/17 12:30 05/17/17 12:15 05/17/17 12:00 05/17/17 11:45 05/17/17 11:30 05/17/17 11:21 99 05/17/17 11:16 98 05/17/17 11:11 99 05/17/17 11:06 97 05/17/17 11:01 98 05/17/17 11:00 05/17/17 10:56 98 05/17/17 10:51 98 05/17/17 10:46 97 05/17/17 10:45 05/17/17 10:41 96 05/17/17 10:36 99 05/17/17 10:31 97 05/17/17 10:26 98 05/17/17 10:21 98 05/17/17 10:16 98 05/17/17 10:11 98 05/17/17 10:06 98 05/17/17 10:01 97 05/17/17 10:00 05/17/17 09:56 98 05/17/17 09:51 97 05/17/17 09:46 98 05/17/17 09:45 05/17/17 09:41 97 05/17/17 09:36 98 05/17/17 09:31 97 05/17/17 09:30 05/17/17 09:26 96 05/17/17 09:21 97 05/17/17 09:16 98 05/17/17 09:15 05/17/17 09:11 97 05/17/17 09:06 96 05/17/17 09:01 99 05/17/17 09:00 05/17/17 08:56 97 05/17/17 08:51 99 05/17/17 08:46 99 05/17/17 08:45 05/17/17 08:41 97 05/17/17 08:36 98 05/17/17 08:31 98 05/17/17 08:26 97 05/17/17 08:21 96 05/17/17 08:16 98 05/17/17 08:11 98 05/17/17 08:06 98 05/17/17 08:01 98 05/17/17 07:56 98 Intake and Output 05/17/17 05/18/17 05/18/17 22:59 06:59 14:59 Intake Total 365 240 Output Total 950 Balance -585 240 Intake: IV 125 PITOCin/NS 20 UNIT/1000ML 125 DRIP 20 units In 1,000 ml @ 125 mls/hr IV DIRECT GINA Rx#:[id number] Oral 240 Intake, Free Water 240 Output: Urine 950 Void 950 Other: Total, Intake Amount 240 Total, Output Amount 450 # Voids Void 1 1 - Exam Breasts: Present: normal, Cardiovascular: Present: Regular rate Lungs: Present: Clear to auscultation, Normal air movement Abdomen: Present: normal appearance, soft Vulva: both: normal Uterus: Present: normal, firm, fundal height at umbilicus Extremities: Present: normal Deep Tendon Reflex Grade: Normal +2 - Labs Labs: Abnormal lab results 05/18/17 Range/Units 00:34 Hgb 8.7 L (10.1-14.3) gm/dl Hct 25.7 L (30.3-42.9) %
--- NOTE | 2017-05-18 08:01 | Discharge Summary ---
Providers - Providers Date of Admission: 05/17/17 02:37 Date of discharge: 05/18/17 (desires d/c home) Attending physician: TATIANA FRANCIS Primary care physician: TATIANA FRANCIS Hospitalization Reason for admission: active labor Delivery: Episiotomy: none Laceration: none Other procedures: none complications: none Discharge diagnosis: IUP at term delivered Elizabeth baby: male Hospital course: uncomplicated vaginal Condition at discharge: Good Disposition: DC-01 TO HOME OR SELFCARE - Discharge Diagnoses (1) Arthritis, rheumatoid Status: Acute Qualifiers: Rheumatoid arthritis location: unspecified site Rheumatoid factor presence : unspecified presence Laterality: L Qualified Code(s): M06.9 - Rheumatoid arthritis, unspecified (2) Single live Status: Acute (3) Anemia Status: Acute Qualifiers: Anemia type: iron deficiency Iron deficiency anemia type: inadequate dietary iron intake Vitamin B12 deficiency anemia type: V Folate deficiency anemia type: F Bone marrow failure anemia type: B Hemolytic anemia type: H Other causes of anemia: O Chronic kidney disease stage: C Qualified Code(s ): D50.8 - Other iron deficiency anemias Plan - Discharge Medications Prescriptions: Docusate Sodium [Colace] 100 mg PO BID PRN #60 capsule PRN Reason: Constipation Ferrous Sulfate [Feosol 325 MG tab] 325 mg PO BID #90 tablet Ibuprofen [Motrin 800 MG tab] 800 mg PO Q8HR PRN #30 tablet PRN Reason: Pain Lidocain2.5%/Prilocai2.5% [Emla] 5 gm TP ONCE PRN #1 tube PRN Reason: Pain - Provider Discharge Summary Activity: routine, no sex for 6 weeks, no heavy lifting 4 weeks, no strenuous exercise Diet: routine Instructions: routine Additional instructions: [] Smoking cessation referral if applicable(refer to patient education folder for contact #) [] Refer to [facility] Booklet Call your doctor immediately for: * Fever > 100.5 * Heavy vaginal bleeding ( >1 pad per hour) * Severe persistent headache * Shortness of breath * Reddened, hot, painful area to leg or breast * Drainage or odor from incision. * Keep incision clean and dry at all times and follow doctor's instructions regarding bathing/showering - Follow up plan Follow up: TATIANA FRANCIS MD [Primary Care Provider] - 7 Days (Congratulation! Please call [phone] to schedule your son's circumcision in 1 week and your visit in 4 weeks. Bring EMLA cream with you to your son's appointment and await further instruction. Please call for any questions or concerns.)
[2017-05-18] MEDS: NORCO 5/325 PO PRN (09:20)
[2017-05-18] MEDS: COLACE PO SCH (09:20)
[2017-05-18] MEDS ORDERED: DELTASONE PO SCH (10:00)
[2017-05-18] MEDS ORDERED: PRENATAL VITAMIN PO SCH (10:00)
[2017-05-18] MEDS ORDERED: M-M-R II VACCINE SUB-Q ONE (11:56)
[2017-05-18 14:15] VITALS: BP 132/83
== END 2017-05-18 15:45 | disposition home or self-care (01) | DRG 775 ==
LOC: TRG 00:40 → LD 02:37 → OB 13:34
PROVIDERS: ADMIT Obstetrics & Gynecology; ATTEND Obstetrics & Gynecology
PROC: 10E0XZZ Delivery of Products of Conception, External Approach (ICD-10-PCS; principal; 2017-05-17)
PROC: 3E0S3CZ (ICD-10-PCS; 2017-05-17)
PROC: 00HU33Z Insertion of Infusion Device into Spinal Canal, Percutaneous Approach (ICD-10-PCS; 2017-05-17)
PROC: 3E0234Z Introduction of Serum, Toxoid and Vaccine into Muscle, Percutaneous Approach (ICD-10-PCS; 2017-05-18)
DX: O75.89 Other specified complications of labor and delivery (principal); O99.354 Diseases of the nervous system complicating childbirth; O99.02 Anemia complicating childbirth; M06.9 Rheumatoid arthritis, unspecified; G43.909 Migraine, unspecified, not intractable, without status migrainosus; D50.8 Other iron deficiency anemias; Z90.49 Acquired absence of other specified parts of digestive tract; Z3A.37 37 weeks gestation of pregnancy; Z37.0 Single live birth; Z91.040 Latex allergy status; Z23 Encounter for immunization
CPT/HCPCS: 36415; 76815; 85014; 85018; 85027; 86592; 86850; 86900; 86901; 87591; 88307; 90715; 99211; A6250; G0463; J0595; J2405; J2590; J3010; J7120; J7512